=== PATIENT | female | born 1955 | race Caucasian/White ===

== ENCOUNTER 2016-11-28 06:51 | Day surgery (SDC) | payer MEDICARE, MEDICAID ==
[~2016-11-28] VITALS: Ht 165.1 cm; Wt 73.2 kg
[2016-11-28] VITALS (7 sets, daily range): BP systolic 86–135; BP diastolic 54–81; PULSE 52–80; RESP 12–16; TEMP 97.1–98.6; O2SAT 90–97; Ht 165.1 cm; Wt 73.2 kg
[~2016-11-28 06:51] MED LIST: AMLO10TA2 PO; DIAZ5TAB PO; HYDR25TA PO; LISI-621 PO; METH10TA2 PO; METO25TA6 PO; SOLI5TAB6 PO
--- OUTSIDE RECORDS SUMMARY | 2016-11-28 06:56 | XMS REPORT ---
Author Author [facility], [facility] (Formerly [facility]) - Organization Unknown Address Unknown Phone Unavailable Allergies, Adverse Reactions, Alerts * Iodine causes Adverse Reaction. * No Latex Allergy. * No IV Contrast Allergy. * No Known Food Allergies. Problems * Chronic Low Back Pain* Status:Active. * Pneumonia* Status:Active. Procedures No relevant procedures performed. Medication Medication reconciliation has not been performed. Results LAB--CHEMISTRY from 05/01/2013 3:12 PMAnion Gap 11 (3-20 ) Albumin 3.8 g/dL (3.5-4.8 g/dL) Alkaline Phosphatase 72 U/L (26-104 U/L) ALT (SGPT) 18 U/L (14-54 U/L) AST (SGOT) 22 U/L (15-41 U/L) Bilirubin Total 0.5 mg/dL (0.2-1.2 mg/dL) BUN 6 mg/dL (4-20 mg/dL) Calcium 8.9 mg/dL (8.6-10.0 mg/dL) Chloride 105 mEq/L (99-109 mEq/L) CO2 23 mEq/L (22-32 mEq/L) Creatinine 0.70 mg/dL (0.44-1.03 mg/dL) eGFR >60 (>60- ) Globulin 3.6 g/dL (1.9-4.3 g/dL) Glucose 150 mg/dL H (70-100 mg/dL) Potassium 2.5 mEq/L L (3.6-5.1 mEq/L) Sodium 139 mEq/L (136-144 mEq/L) Protein 7.4 g/dL (6.1-7.9 g/dL) Uric Acid 4.7 mg/dL (2.6-8.0 mg/dL) C-Reactive Protein (CRP) 7.8 mg/dL H (0.0-0.9 mg/dL) LAB--HEMATOLOGY from 05/01/2013 3:12 PMAbsolute Basophils 0.02 THOUS (0.00-0.20 THOUS) Absolute Eosinophils 0.16 THOUS (0.00-0.50 THOUS) Absolute Lymphocytes 2.17 THOUS (0.80-3.30 THOUS) Absolute Monocytes 0.90 THOUS (0.30-1.00 THOUS) Absolute Neutrophils 6.58 THOUS (1.90-7.00 THOUS) HCT 43.8 % (37.0-47.0 %) HGB 14.5 g/dl (12.0-16.0 g/dl) MCH 31.8 pg (27.0-32.0 pg) MCHC 33.1 g/dL (32.0-36.0 g/dL) MCV 96.1 fL (82.0-99.0 fL) MPV 10.0 fL (9.4-12.4 fL) Platelet Count 218 K/uL (150-400 K/uL) RBC 4.56 M/uL (4.00-5.20 M/uL) RDW 12.8 % (11.5-14.5 %) WBC 9.9 K/uL (4.8-10.8 K/uL) Basophils 0 % (0-2 %) Eosinophils 2 % (0-4 %) Immature Granulocytes 0.3 % (0.0-1.0 %) Lymphocytes 22 % (20-46 %) Monocytes 9 % (4-11 %) Neutrophils 67 % (51-75 %) Sedimentation Rate 36 mm/hr H (0-23 mm/hr)
--- OUTSIDE RECORDS SUMMARY | 2016-11-28 06:56 | XMS REPORT | Referral Summary ---
Author Author [facility] Organization [facility] Address Unknown Phone Unavailable Care Team Providers Care Pier Worker Name Role Phone Alicia Mendoza Primary Care Physician [phone] Encounter VC Date(s): 04/26/15 - 04/26/15 [facility] [address] [address]- Discharge Diagnosis: Urinary tract infection Discharge Diagnosis: COPD (chronic obstructive pulmonary disease) Discharge Diagnosis: Microscopic hematuria Discharge Diagnosis: OAB (overactive bladder) Discharge Diagnosis: Incontinence of urine in female Discharge Diagnosis: Bipolar Discharge Diagnosis: Chronic back pain Discharge Diagnosis: Morbid obesity Discharge Diagnosis: HTN (hypertension) Discharge Diagnosis: Neuropathy, peripheral Discharge Disposition: -Home or Self Care Attending Physician: Kary Moya MD Admitting Physician: Kary Moya MD Referring Physician: Joshua Mendoza DO Vital Signs Most recent to 1 oldest [Reference Range]: Respiratory Rate 18 br/min [14-20 br/min] (04/26/15 11:12 AM) Blood Pressure 130/90 mmHg [90-140/60-90 mmHg] (04/26/15 11:12 AM) Problem List Condition Effective Dates Status Health Status Informant Acute Active pain(Confirmed) Anxiety(Confirmed) Active patient Asthma(Confirmed) Active patient At risk for activity Active intolerance(Confirme d)1 At risk of pressure Active sore(Confirmed) Bipolar(Confirmed) Active patient Chronic back Active patient pain(Confirmed) COPD (chronic Active patient obstructive pulmonary disease)(Confirmed) HTN Active patient (hypertension)(Confi rmed) Impaired gas Active exchange(Confirmed)2 Morbid Active patient obesity(Confirmed) 1Problem added automatically by system based on initiation of At Risk for Activity Intolerance Plan of Care 2Problem added automatically by system based on initiation of Impaired Gas Exchange Plan of Care Allergies, Adverse Reactions, Alerts Substance Reaction Severity Status iodine Adverse Reaction Active Medications albuterol 5 mg/mL (0.5%) inhalation solution 0.5 mL, NEB, q2hr (scheduled), Other (See Comment), 0 Refill(s) Start Date: 04/12/14 Status: Ordered amLODIPine 10 mg oral tablet 10 mg 1 tabs, Oral, Daily, # 30 tabs, 5 Refill(s), Pharmacy: [facility] [id number], 1 tabs Oral Daily,x30 days Start Date: 04/12/15 Stop Date: 10/09/15 Status: Ordered Bactrim DS 800 mg-160 mg oral tablet 1 tabs, Oral, Daily, # 30 tabs, 0 Refill(s) Start Date: 03/01/15 Stop Date: 03/06/16 Status: Ordered Brovana 15 mcg/2 mL inhalation solution 2 mL, NEB, BID, 0 Refill(s) Start Date: 04/12/14 Status: Ordered budesonide 0.5 mg/2 mL inhalation suspension 2 mL, NEB, BID, 0 Refill(s) Start Date: 04/12/14 Status: Ordered busPIRone 10 mg oral tablet 1 tabs, Oral, Daily, 0 Refill(s) Start Date: 04/12/14 Status: Ordered Habitrol 14 mg/24 hr transdermal film, extended release 1 patches, TransDermal, Daily, 0 Refill(s) Start Date: 04/12/14 Status: Ordered ipratropium 500 mcg/2.5 mL inhalation solution 2.5 mL, NEB, q2hr (scheduled), Other (See Comment), 0 Refill(s) Start Date: 04/12/14 Status: Ordered methadone 40 mg, Oral, BID, 0 Refill(s) Start Date: 04/09/14 Status: Ordered Miscellaneous DME DME Item Reclining Chair Dx: COPD, See Instructions, # 1 Each, 0 Refill(s), Supply Start Date: 06/08/14 Status: Ordered Miscellaneous DME DME Item Walker with seat and basket Dx: COPD, See Instructions, # 1 Each, 0 Refill(s), Supply Start Date: 06/08/14 Status: Ordered nicotine 14 mg/24 hr transdermal film, extended release 1 patches, Topical, Daily, # 30 patches, 1 Refill(s), Pharmacy: [facility] [id number] Start Date: 06/08/14 Status: Ordered Norvasc 10 mg oral tablet 1 tabs, Oral, Daily, 0 Refill(s) Start Date: 04/12/14 Status: Ordered Pepcid 20 mg oral tablet 2 tabs, Oral, BID, # 120 tabs, 1 Refill(s), Pharmacy: [facility] [id number] , 2 tabs Oral BID Start Date: 06/08/14 Status: Ordered Percocet 10/325 1 tabs, Oral, q6hr, as needed for pain, 0 Refill(s) Start Date: 04/09/14 Status: Ordered potassium chloride 20 mEq oral tablet, extended release 2 tabs, Oral, TIDWM, 0 Refill(s) Start Date: 04/12/14 Status: Ordered ProAir HFA 90 mcg/inh inhalation aerosol 2 puffs, Inhalation, q4hr, Shortness of Breath/Wheezing, # 1 Each, 6 Refill(s), Pharmacy: [facility] [place] [place] Start Date: 08/01/15 Status: Ordered Spiriva 18 mcg inhalation capsule 18 mcg 1 Each, Inhalation, Daily, use two inhalations of one capsule for each dose-must keep appt, # 30 Each, 6 Refill(s), Pharmacy: [facility] [place], [place], 1 Each Inhalation Daily,Instr:use two inhalations of one capsule for each dose-mu... Start Date: 08/01/15 Status: Ordered Tums 500 mg oral tablet, chewable 2 tabs, Oral, TIDAC, 0 Refill(s) Start Date: 04/12/14 Status: Ordered Valium 5 mg, Oral, TID, 0 Refill(s) Start Date: 04/09/14 Status: Ordered Results Microbiology Reports TEST: Urine Culture STATUS: Auth (Verified) BODY SITE: SOURCE: Urine, Clean Catch COLLECTED DATE/TIME: 04/26/15 12:00 PM Urine Culture Other mixed alfred present Enterobacter cloacae 50-100,000 cfu/ml ORGANISM:Enterobacter cloacae Immunizations Vaccine Date Refusal Reason influenza virus vaccine, inactivated 06/21/15 influenza virus vaccine, live 11/26/11 influenza virus vaccine, live 10/31/10 tetanus-diphth toxoids (Td) adult/adol 06/20/01 Procedures Procedure Date Related Diagnosis Body Site Measurement of post-voiding residual urine 04/26/15 and/or bladder capacity by ultrasound, non-imaging Adenoidectomy Appendectomy Back Hysterectomy Tonsillectomy Social History Social History Type Response Smoking Status Former smoker Assessment and Plan No data available for this section
--- OUTSIDE RECORDS SUMMARY | 2016-11-28 06:56 | XMS REPORT | Referral Summary ---
Author Author [facility] Organization [facility] Address Unknown Phone Unavailable Care Team Providers Care Superintendent Refuse Disposal Name Role Phone Alicia Mendoza Primary Care Physician [phone] Encounter VC Date(s): 08/01/15 - 08/01/15 [facility] [address] [id number] Discharge Diagnosis: COPD (chronic obstructive pulmonary disease) Discharge Diagnosis: HTN (hypertension) Discharge Disposition: 01-Home or Self Care Attending Physician: Zeenat Delgado MD Admitting Physician: Joshua Mendoza DO Vital Signs Most recent to 1 oldest [Reference Range]: Temperature Oral 36.9 degC [35.8-37.3 degC] (08/01/15 2:56 PM) Peripheral Pulse 97 bpm Rate [60-100 bpm] (08/01/15 2:56 PM) Respiratory Rate 22 br/min [14-20 br/min] *HI* (08/01/15 2:56 PM) Blood Pressure 130/68 mmHg [90-140/60-90 mmHg] (08/01/15 2:56 PM) SpO2 97 % (08/01/15 2:56 PM) Problem List Condition Effective Dates Status Health [...] Daily, # 30 tabs, 5 Refill(s), Pharmacy: [facility] [id number], 1 tabs Oral Daily,x30 days Start Date: [...] Daily, # 30 patches, 1 Refill(s), Pharmacy: [facility] [id number] Start Date: 06/08/14 Status: Ordered Norvasc 10 mg oral tablet 1 tabs, Oral, Daily, 0 Refill(s) Start Date: 04/12/14 Status: Ordered Pepcid 20 mg oral tablet 2 tabs, Oral, BID, # 120 tabs, 1 Refill(s), Pharmacy: [facility] [id number] , 2 tabs Oral BID Start Date: [...] Each, 6 Refill(s), Pharmacy: [facility] [place] [place] Start Date: 08/01/15 Status: Ordered Spiriva 18 mcg inhalation capsule 18 mcg 1 Each, Inhalation, Daily, use two inhalations of one capsule for each dose-must keep appt, # 30 Each, 6 Refill(s), Pharmacy: [facility] [place], [place], 1 Each Inhalation Daily,Instr:use two inhalations of one capsule for each dose-mu... Start Date: 08/01/15 Status: Ordered Tums 500 mg oral tablet, chewable 2 tabs, Oral, TIDAC, 0 Refill(s) Start Date: 04/12/14 Status: Ordered Valium 5 mg, Oral, TID, 0 Refill(s) Start Date: 04/09/14 Status: Ordered Results No data available for this section Immunizations Vaccine Date Refusal Reason influenza virus vaccine, inactivated 06/21/15 influenza virus vaccine, live 11/26/11 influenza virus vaccine, live 10/31/10 tetanus-diphth toxoids (Td) adult/adol 06/20/01 Procedures Procedure Date Related Diagnosis Body Site Adenoidectomy Appendectomy Back Hysterectomy Tonsillectomy Social History Social History Type Response Smoking Status Former smoker Assessment and Plan Extracted from: Title: Ambulatory Patient Education Author: Joshua Mendoza DO Date: 08/01/15 Family Medicine Chronic Obstructive Pulmonary Disease Chronic obstructive pulmonary disease (COPD) is a common lung condition in which airflow from the lungs is limited. COPD is a general term that can be used to describe many different lung problems that limit airflow, including both chronic bronchitis and emphysema. If you have COPD, your lung function will probably never return to normal, but there are measures you can take to improve lung function and make yourself feel better. CAUSES Smoking (common). Exposure to secondhand smoke. Genetic problems. Chronic inflammatory lung diseases or recurrent infections. SYMPTOMS Shortness of breath, especially with physical activity. Deep, persistent (chronic) cough with a large amount of thick mucus. Wheezing. Rapid breaths (tachypnea). Neville or bluish discoloration (cyanosis) of the skin, especially in fingers , toes, or lips. Fatigue. Weight loss. Frequent infections or episodes when breathing symptoms become much worse ( exacerbations). Chest tightness. DIAGNOSIS Your health care provider will take a medical history and perform a physical examination to make the initial diagnosis. Additional tests for COPD may include: Lung (pulmonary) function tests. Chest X-ray. CT scan. Blood tests. TREATMENT Treatment available to help you feel better when you have COPD includes: Inhaler and nebulizer medicines. These help manage the symptoms of COPD and make your breathing more comfortable. Supplemental oxygen. Supplemental oxygen is only helpful if you have a low oxygen level in your blood. Exercise and physical activity. These are beneficial for nearly all people with COPD. Some people may also benefit from a pulmonary rehabilitation program. HOME CARE INSTRUCTIONS Take all medicines (inhaled or pills) as directed by your health care provider. Avoid jugb-rga-smkdwek medicines or cough syrups that dry up your airway ( such as antihistamines) and slow down the elimination of secretions unless instructed otherwise by your health care provider. If you are a smoker, the most important thing that you can do is stop smoking. Continuing to smoke will cause further lung damage and breathing trouble. Ask your health care provider for help with quitting smoking. He or she can direct you to community resources or hospitals that provide support. Avoid exposure to irritants such as smoke, chemicals, and fumes that aggravate your breathing. Use oxygen therapy and pulmonary rehabilitation if directed by your health care provider. If you require home oxygen therapy, ask your health care provider whether you should purchase a pulse oximeter to measure your oxygen level at home. Avoid contact with individuals who have a contagious illness. Avoid extreme temperature and humidity changes. Eat healthy foods. Eating smaller, more frequent meals and resting before meals may help you maintain your strength. Stay active, but balance activity with periods of rest. Exercise and physical activity will help you maintain your ability to do things you want to do. Preventing infection and hospitalization is very important when you have COPD. Make sure to receive all the vaccines your health care provider recommends , especially the pneumococcal and influenza vaccines. Ask your health care provider whether you need a pneumonia vaccine. Learn and use relaxation techniques to manage stress. Learn and use controlled breathing techniques as directed by your health care provider. Controlled breathing techniques include: Pursed lip breathing. Start by breathing in (inhaling) through your nose for 1 second. Then, purse your lips as if you were going to whistle and breathe out (exhale) through the pursed lips for 2 seconds. Diaphragmatic breathing. Start by putting one hand on your abdomen just above your waist. Inhale slowly through your nose. The hand on your abdomen should move out. Then purse your lips and exhale slowly. You should be able to feel the hand on your abdomen moving in as you exhale. Learn and use controlled coughing to clear mucus from your lungs. Controlled coughing is a series of short, progressive coughs. The steps of controlled coughing are: 1. Lean your head slightly forward. 2. Breathe in deeply using diaphragmatic breathing. 3. Try to hold your breath for 3 seconds. 4. Keep your mouth slightly open while coughing twice. 5. Spit any mucus out into a tissue. 6. Rest and repeat the steps once or twice as needed. SEEK MEDICAL CARE IF: You are coughing up more mucus than usual. There is a change in the color or thickness of your mucus. Your breathing is more labored than usual. Your breathing is faster than usual. SEEK IMMEDIATE MEDICAL CARE IF: You have shortness of breath while you are resting. You have shortness of breath that prevents you from: Being able to talk. Performing your usual physical activities. You have chest pain lasting longer than 5 minutes. Your skin color is more cyanotic than usual. You measure low oxygen saturations for longer than 5 minutes with a pulse oximeter. MAKE SURE YOU: Understand these instructions. Will watch your condition. Will get help right away if you are not doing well or get worse. Document Released: 06/03/2006 Document Revised: 01/08/2015 Document Reviewed: ExitCare Patient Information 2015 [facility], [facility]. This information is not intended to replace advice given to you by your health care provider. Make sure you discuss any questions you have with your health care provider. No follow up information was provided.
--- OUTSIDE RECORDS SUMMARY | 2016-11-28 06:56 | XMS REPORT | Referral Summary ---
Author Author [facility] Organization [facility] Address Unknown Phone Unavailable Care Team Providers Care Bar Host Name Role Phone Alicia Mendoza Primary Care Physician [phone] Encounter Date(s): 03/01/15 - 03/01/15 [facility] [address] [place] [address]- Discharge Diagnosis: Mid back pain on right side Discharge Diagnosis: Acute UTI Discharge Diagnosis: Acute urinary retention Final: OTHER SPECIFIED RETENTION OF URINE Final: URINARY TRACT INFECTION, SITE NOT SPECIFIED Final: ATHEROSCLEROSIS OF AORTA Final: TOBACCO USE DISORDER Discharge Disposition: -Home or Self Care Attending Physician: Diomedes Santoro MD Admitting Physician: Diomedes Erickson DO Referring Physician: Self Referred, X Vital Signs Most recent to 1 oldest [Reference Range]: Temperature Oral 36.5 degC [35.8-37.3 degC] (03/01/15 5:59 PM) Peripheral Pulse 84 bpm Rate [60-100 bpm] (03/01/15 5:59 PM) Heart Rate Monitored 60 bpm [60-100 bpm] (03/01/15 9:30 PM) Respiratory Rate 16 br/min [14-20 br/min] (03/01/15 7:46 PM) Blood Pressure 182/98 mmHg [90-140/60-90 mmHg] *HI* (03/01/15 9:30 PM) Mean Arterial 134 mmHg Pressure, Cuff (03/01/15 9:30 PM) SpO2 95 % (03/01/15 7:46 PM) Problem List Condition Effective Dates Status [...] Daily, # 30 tabs, 5 Refill(s), Pharmacy: [facility] [id number], 1 tabs Oral Daily,x30 days Start Date: [...] Daily, # 30 patches, 1 Refill(s), Pharmacy: [facility] [id number] Start Date: 06/08/14 Status: Ordered Norvasc 10 mg oral tablet 1 tabs, Oral, Daily, 0 Refill(s) Start Date: 04/12/14 Status: Ordered Pepcid 20 mg oral tablet 2 tabs, Oral, BID, # 120 tabs, 1 Refill(s), Pharmacy: [facility] [id number] , 2 tabs Oral BID Start Date: [...] Each, 6 Refill(s), Pharmacy: [facility] [place] Start Date: 08/01/15 Status: Ordered Spiriva 18 mcg inhalation capsule 18 mcg 1 Each, Inhalation, Daily, use two inhalations of one capsule for each dose-must keep appt, # 30 Each, 6 Refill(s), Pharmacy: [facility] [place], 1 Each Inhalation Daily,Instr:use two inhalations of one capsule for each dose-mu... Start Date: 08/01/15 Status: Ordered Tums 500 mg oral tablet, chewable 2 tabs, Oral, TIDAC, 0 Refill(s) Start Date: 04/12/14 Status: Ordered Valium 5 mg, Oral, TID, 0 Refill(s) Start Date: 04/09/14 Status: Ordered Results Hematology Most recent to 1 oldest [Reference Range]: WBC [4.8-10.8 9.2 10*3/uL 10*3/uL] (03/01/15 7:41 PM) RBC [4.00-5.20 4.52 10*6/uL 10*6/uL] (03/01/15 7:41 PM) Hgb [12.0-16.0 14.7 gm/dL gm/dL] (03/01/15 7:41 PM) Hct [37.0-47.0 %] 42.4 % (03/01/15 7:41 PM) MCV [82.0-99.0 fL] 93.8 fL (03/01/15 7:41 PM) MCH [27.0-32.0 pg] 32.5 pg *HI* (03/01/15:41 PM) MCHC [32.0-36.0 34.7 gm/dL gm/dL] (03/01/15 7:41 PM) RDW [11.5-14.5 %] 12.2 % (03/01/15 7:41 PM) Platelet [150-400 255 10*3/uL 10*3/uL] (03/01/15 7:41 PM) MPV [9.4-12.4 fL] 9.7 fL (03/01/15 7:41 PM) Immature 0.3 % Granulocytes (03/01/15 7:41 PM) [0.0-1.0 %] Neutrophils [51-75 50 % %] *LOW* (03/01/15 7:41 PM) Lymphocytes [20-46 35 % %] (03/01/15 7:41 PM) Monocytes [4-11 %] 9 % (03/01/15 7:41 PM) Eosinophils [0-4 %] 6 % *HI* (03/01/15 7:41 PM) Basophils [0-2 %] 1 % (03/01/15 7:41 PM) Neutro Absolute 4.55 10*3 [1.90-7.00 10*3] (03/01/15 7:41 PM) Lymph Absolute 3.22 10*3 [0.80-3.30 10*3] (03/01/15 7:41 PM) Shannon Absolute 0.84 10*3 [0.30-1.00 10*3] (03/01/15 7:41 PM) Eos Absolute 0.51 10*3 [0.00-0.50 10*3] *HI* (03/01/15 7:41 PM) Baso Absolute 0.05 10*3 [0.00-0.20 10*3] (03/01/15 7:41 PM) Chemistry Most recent to 1 oldest [Reference Range]: Sodium Lvl [136-144 138 mEq/L mEq/L] (03/01/15 7:41 PM) Potassium Lvl 3.6 mEq/L 1 [3.6-5.1 mEq/L] (03/01/15 7:41 PM) Chloride [99-109 103 mEq/L mEq/L] (03/01/15 7:41 PM) CO2 [22-32 mEq/L] 26 mEq/L (03/01/15 7:41 PM) AGAP [3-20] 9 (03/01/15 7:41 PM) BUN [4-20 mg/dL] 9 mg/dL (03/01/15 7:41 PM) Glucose Lvl [70-100 91 mg/dL mg/dL] (03/01/15 7:41 PM) Creatinine Lvl 0.76 mg/dL [0.44-1.03 mg/dL] (03/01/15 7:41 PM) eGFR [>60] >60 2 (03/01/15 7:41 PM) Calcium Lvl 9.3 mg/dL [8.6-10.0 mg/dL] (03/01/15 7:41 PM) Albumin Lvl [3.5-4.8 4.5 gm/dL gm/dL] (03/01/15 7:41 PM) Total Protein 7.8 gm/dL [6.1-7.9 gm/dL] (03/01/15 7:41 PM) Globulin [1.9-4.3 3.3 gm/dL gm/dL] (03/01/15 7:41 PM) ALT [14-54 U/L] 25 U/L (03/01/15 7:41 PM) AST [15-41 U/L] 31 U/L (03/01/15 7:41 PM) Alk Phos [26-104 82 U/L U/L] (03/01/15 7:41 PM) Bili Total [0.2-1.2 0.8 mg/dL 3 mg/dL] (03/01/15 7:41 PM) Lipase Lvl [8-48 15 U/L U/L] (03/01/15 7:41 PM) 1Result Comment: Hemolyzed specimen. The following tests may be affected: ALT, AST, Ammonia, Iron, Potassium, LDH, Amylase, CPK, and Total Bilirubin. 2Result Comment: Multiply eGFR results by 1.21 for race. 3Result Comment: Naproxen, specifically the metabolite O-desmethylnaproxen, may cause spurious elevation in Total Bilirubin levels. Urinalysis Most recent to 1 oldest [Reference Range]: UA Color Lt Yellow (03/01/15 7:42 PM) UA Appear Clear (03/01/15 7:42 PM) UA pH [5.0-8.0] 7.0 (03/01/15 7:42 PM) UA Leuk Est Negative [Negative] (03/01/15 7:42 PM) UA Nitrite Negative [Negative] (03/01/15 7:42 PM) UA Protein Negative [Negative] (03/01/15 7:42 PM) UA Glucose Negative [Negative] (03/01/15 7:42 PM) UA Ketones Negative [Negative] (03/01/15 7:42 PM) UA Urobilinogen Negative [<1.0] (03/01/15 7:42 PM) UA Bili [Negative] Negative (03/01/15 7:42 PM) UA Blood [Negative] Pos 1+ *ABN* (03/01/15 7:42 PM) UA Spec Grav 1.005 [1.003-1.030] (03/01/15 7:42 PM) Type Clean Catch (03/01/15 7:42 PM) UA WBC [0-4] 0-2 (03/01/15 7:42 PM) UA RBC [0-2] 2-5 (03/01/15 7:42 PM) Epithelial Cells 0-2 (03/01/15 7:42 PM) Immunizations Vaccine Date Refusal Reason influenza virus vaccine, inactivated 06/21/15 influenza virus vaccine, live 11/26/11 influenza virus vaccine, live 10/31/10 tetanus-diphth toxoids (Td) adult/adol 06/20/01 Procedures Procedure Date Related Diagnosis Body Site Insertion of non-indwelling bladder catheter 03/01/15 (eg, straight catheterization for residual urine) Adenoidectomy Appendectomy Back Hysterectomy Tonsillectomy Social History Social History Type Response Smoking Status Former smoker Assessment and Plan No data available for this section
--- OUTSIDE RECORDS SUMMARY | 2016-11-28 06:56 | XMS REPORT | Referral Summary ---
Author Author [facility] Organization [facility] Address Unknown Phone Unavailable Care Team Providers Care Lab Tech Name Role Phone Alicia Mendoza Primary Care Physician [phone] Encounter VC Date(s): 04/12/15 - 04/12/15 [facility] [address] [id number] Discharge Diagnosis: Urinary retention Discharge Diagnosis: Hypertension Discharge Disposition: -Home or Self Care Attending Physician: Dayanara Mckeon MD Admitting Physician: Joshua Mendoza DO Vital Signs Most recent to 1 oldest [Reference Range]: Temperature Oral 36.7 degC [35.8-37.3 degC] (04/12/15 8:12 AM) Peripheral Pulse 78 bpm Rate [60-100 bpm] (04/12/15 8:12 AM) Respiratory Rate 20 br/min [14-20 br/min] (04/12/15 8:12 AM) Blood Pressure 198/106 mmHg [90-140/60-90 mmHg] *HI* (04/12/15 8:12 AM) Problem List Condition Effective Dates Status [...] Daily, # 30 tabs, 5 Refill(s), Pharmacy: [id number], 1 tabs Oral Daily,x30 days Start Date: [...] Daily, # 30 patches, 1 Refill(s), Pharmacy: [facility] [id number] Start Date: 06/08/14 Status: Ordered Norvasc 10 mg oral tablet 1 tabs, Oral, Daily, 0 Refill(s) Start Date: 04/12/14 Status: Ordered Pepcid 20 mg oral tablet 2 tabs, Oral, BID, # 120 tabs, 1 Refill(s), Pharmacy: [id number] , 2 tabs Oral BID Start Date: [...] Each, 6 Refill(s), Pharmacy: [facility] [place], [place], 1 Each Inhalation Daily,Instr:use two inhalations of one capsule for each dose-mu... Start Date: 08/01/15 Status: Ordered Tums 500 mg oral tablet, chewable 2 tabs, Oral, TIDAC, 0 Refill(s) Start Date: 04/12/14 Status: Ordered Valium 5 mg, Oral, TID, 0 Refill(s) Start Date: 04/09/14 Status: Ordered Results Urinalysis Most recent to 1 oldest [Reference Range]: UA Color Yellow (04/12/15 12:00 AM) UA Appear Clear (04/12/15 12:00 AM) UA pH [5.0-8.0] 6.0 (04/12/15 12:00 AM) UA Leuk Est Negative [Negative] (04/12/15 12:00 AM) UA Nitrite Negative [Negative] (04/12/15 12:00 AM) UA Protein Negative [Negative] (04/12/15 12:00 AM) UA Glucose Negative [Negative] (04/12/15 12:00 AM) UA Ketones Negative [Negative] (04/12/15 12:00 AM) UA Urobilinogen 0.2 mg/dL (04/12/15 12:00 AM) UA Bili [Negative] Negative (04/12/15 12:00 AM) UA Blood Pos 1+ *ABN* (04/12/15 12:00 AM) UA Spec Grav <=1.005 [1.003-1.030] (04/12/15 12:00 AM) Type Cl Catch (04/12/15 12:00 AM) UA WBC [0-4] 0-2 (04/12/15 12:00 AM) UA RBC [0-4] 0-4 (04/12/15 12:00 AM) Epithelial Cells 0-2 (04/12/15 12:00 AM) Immunizations Vaccine Date Refusal Reason influenza virus vaccine, inactivated 06/21/15 influenza virus vaccine, live 11/26/11 influenza virus vaccine, live 10/31/10 tetanus-diphth toxoids (Td) adult/adol 06/20/01 Procedures Procedure Date Related Diagnosis Body Site Adenoidectomy Appendectomy Back Hysterectomy Tonsillectomy Social History Social History Type Response Smoking Status Former smoker Assessment and Plan Extracted from: Title: Office Visit Note Author: Joshua Mendoza DO Date: 04/12/15 Assessment/Plan 59 year old female with: 1. Urinary retention - PV Cath in ER last month was ~200cc. UA today in clinic not suggestive of UTI , neg LE, neg Nitrite - Will repeat MRI lumbar spine due to new numbness and tingling in groin associated with bladder dysfunction - No cystocele or vaginal atrophy to account for her symptoms - Will refer to urology for urodynamic testing and possible cystoscopy, but will need MRI first to r/o autonomiccompression neuropathy given her history and symptoms 2. Hypertension - Not well controlled, pt states that she ran out of her amlodipine several days ago and has neglected to get refill. Will refill today, take and check BP at home, call if does not improve or develops headache or chest pain. - Denies headache or chest pain today. I discussed this patient with my preceptor, Dr. Mckeon,who agreed with the assessment and plan. Addendum I discussed the patient with the Resident/INTELLIGENCE OFFICER BASIC/PA/RN/PharmD, reviewed the chart and was by Mike, physically present during the critical portion of the provided service, and concur with Dayanara Cardona MD the assessment and plan as above. ~Dayanara Mckeon MD on April 12, 2015 11:09:13 CDT
[2016-11-28] MEDS ORDERED: LIDOCAINE 1% (10mg/ml) 2ml SDV INJ ONE (07:00)
[2016-11-28] MEDS ORDERED: LR 1,000 ML IV SCH (07:00)
[2016-11-28] MEDS ORDERED: FLEET PHOSPHO-SODA 133 ML ENEMA RECTALLY PRN (09:15)
--- NOTE | 2016-11-28 10:00 | ANESPREOP ---
Anesthesia Record Date and Time DATE: 11/28/16 TIME: 09:57 Pre-Op Diagnosis hematochezia Proposed Surgical Procedure COLONOSCOPY Allergies: Coded Allergies: NKDA (Verified Allergy, Unknown, 11/28/16) Uncoded Allergies: IVP DYE (Allergy, Severe, 11/27/16) CARDIAC ARREST Ht/Wt/BMI Height: 5 ' 5.00 " Weight: 73.200 kg BMI: 26.9 kg/m2 Vital Signs Date Time Temp Pulse Resp B/P Pulse Ox O2 Delivery O2 Flow Rate FiO2 11/28/16 07:09 98.0 76 13 135/75 90 Room Air Medications Inpatient Medications Current Medications Medications (Trade) Dose Ordered Sig/Carissa Start Time Stop Time Status Last Admin Dose Admin Lactated Ringer's (Lactated Ringers) 1,000 ml @ 50 mls/hr Q20H 11/28/16 07:00 Sodium Biphosphate/ Sodium Phosphate (Fleet Enema Saline) 1 enema PRN PRN 11/28/16 09:15 11/28/16 09:05 1 ENEMA Amlodipine Besylate (Amlodipine Besylate) 10 Mg Tablet, 10 MG PO DAILY, ( Reported) Last Taken: on 11/27/16599 Diazepam (Valium) 5 Mg Tablet, 1 TAB PO TID, ( Reported) Last Taken: on 11/27/16599 Hydrochlorothiazide (Hydrochlorothiazide) 25 Mg Tablet, 1 TAB PO WB, (Reported) Last Taken: on 11/27/16599 Lisinopril (Lisinopril) 20 Mg Tablet, 20 MG PO DAILY, (Reported) Last Taken: on 11/28/16599 Methadone HCl (Methadone HCl) 10 Mg Tablet, 1 TAB PO BID, (Reported) Last Taken: on 11/27/16599 Metoprolol Tartrate (Metoprolol Tartrate) 25 Mg Tablet, 25 MG PO WB, (Reported) Take 1 tab, by mouth, one time a day (with breakfast). Last Taken: on 11/28/16599 Solifenacin Succinate (Vesicare) 5 Mg Tablet, 5 MG PO DAILY, (Reported) Last Taken: on 11/27/16599 Currently on Beta Maxwell: Yes Beta Maxwell Last Taken: METOPROLOL 0600 11/28/16 Medical/Surgical History Anesthesia PMH: Reports: *Hypertension (PER H&P), COPD (PER H&P), Denies: * Diabetes, Anesthesia Reactions (NO AIRWAY ISSUES), Cancer, Glaucoma, Malignant Hyperthermia, Sleep Apnea, Thyroid Disease Smoking Status: Former smoker Has pt. smoked today?: No Use Chewing Tobacco?: No Second Hand Exposure: No Substance Use Type: does not use Substance last used: unknown Alcohol Intake: none Last Drink: unknown Past Surgical History Orthopedic Surgeries: Yes - BACK SURGERY PER H&P Abdominal Surgeries: Yes - APPY PER H&P Genitourinary Surgeries: Cardiac Surgeries: Endocrine Surgeries: Reproductive Surgeries: Yes - D&C,TOTAL HYST PER H&P Neurological Surgeries: Ear Surgeries: Nose Surgeries: Throat Surgeries: Yes - TONSILLECTOMY PER H&P Other Surgeries: Yes - FULL TEETH EXTRACTION PER H&P Anesthesia Adverse Reactions: FOUND nausea and vomiting Family Hx of Anesthesia Advers: none Hx of Motion Sickness: Yes Pertinent Findings EKG Rhythm: Sinus Rhythm Physical Exam Respiratory: Bilat breath sounds equal, Lungs clear Cardiovascular: FOUND Regular rate, rhythm, FOUND No murmur Airway Assessment Mallampati Score: I Neck Extension: Good Teeth: Upper Dentures, Lower Dentures Overall Assessment: May Be Diff Mask Vent. ASA: 2 Plan Anesthesia Plan: TIVA Discussion Discussed risks/options/alternatives of anesthesia and questions answered. Patient consents. Nursing pain assessment noted. Attestation Statement Prior to the delivery of any anesthetic medication, I examined the patient, developed the plan, obtained the patient's consent and discussed the risk and benefits of the procedure with the patient/guardian. HERBER LABOY CRNA Nov 28, 2016 10:00
[2016-11-28] MEDS ORDERED: PROPOFOL 500mg 50 ML IV ONE (10:08)
[2016-11-28] MEDS ORDERED: LIDOCAINE 1% (10mg/ml) 2ml SDV ONE (10:08)
--- NOTE | 2016-11-28 10:37 | GSPOSTPROC ---
Immediate Operative Note DATE: 11/28/16 TIME: 10:36 Postop Diagnosis: colon polyps Surgical Procedure: C-scope w/Polypectomy Surgeon: Zulema ASA: 2 RONEN ALVAREZ MD Nov 28, 2016 10:37
--- NOTE | 2016-11-28 11:34 | ANESPO ---
Post-Op Note Date 11/28/16 Time: 11:33 Status Pt Participated in Evaluation: Pt participated in person Vital Signs Date Time Temp Pulse Resp B/P Pulse Ox O2 Delivery O2 Flow Rate FiO2 11/28/16 11:17 97.1 52 16 115/70 97 Room Air Respiratory Function: Airway patent, Regular respirations Cardiovascular Function: Regular pulse Mental Status: Alert/oriented Pain Level Intensity: 0 (0) Hydration: Taking po fluids Complications during Recovery None apparent Post-Anesthesia Notes [email or web address]. [email or web address] Follow-Up Instructions Instructions Per Surgeon Additional Information none HERBER LABOY CRNA Nov 28, 2016 11:33
--- NOTE | 2016-11-28 19:13 | OPNOTEF ---
DATE OF OPERATION 11/28/2016 PREOPERATIVE DIAGNOSIS Hematochezia. POSTOPERATIVE DIAGNOSES 1. Internal hemorrhoids. 2. Hematochezia. 3. Two colon polyps. OPERATION Total colonoscopy with polypectomy. SURGEON Dr. Zulema PATEL ASA Class 2 FINDINGS There were no colon or rectal tumors. The patient did have two colon polyps. One polyp was located at 10 cm proximal to the anal verge. The other polyp was located at 8 cm proximal to the anal verge. There were no colonic angiodysplasia lesions. There was no melanosis coli. There was no inflammatory bowel disease. There was no colonic diverticulosis. The patient does have some internal hemorrhoids. No bright red blood or old blood was seen at the colon or rectum at the time of procedure today. It was thought at the conclusion of the procedure that any hematochezia experienced by the patient has been due to bleeding from internal hemorrhoids.. DESCRIPTION OF OPERATION The patient was brought to the endoscopy room. The patient was placed on a cart in the endoscopy room. The patient was placed in left lateral recumbent position on the cart in the endoscopy room. The patient was premedicated with intravenous sedation medication administered by the nurse estate planning attorney. The Olympus colonoscope was used. The colonoscope was introduced into the rectum. The colonoscope was advanced up through the rectum and colon all the way up to the cecum. The appendiceal orifice was visualized. The ileocecal valve was visualized. The colonoscope was withdrawn out through the colon. When the colonoscope had been withdrawn out to a level 10 cm and 8 cm proximal to the anal verge, the two colon polyps were identified. Each of these polyps was removed with the electrocautery snare device and retrieved and submitted as a specimen for study by the pathologist. The colonoscope was then withdrawn the remainder of the way out through the colon and rectum and removed from the patient. Digital rectal examination was performed. Findings throughout the procedure were as described above. The patient did continue to receive intravenous sedation medication administered by the nurse estate planning attorney throughout the operation. The patient did tolerate the operation well. CECILIO
== END 2016-11-28 11:42 | disposition home or self-care (01) ==
LOC: SCU 06:51
PROVIDERS: ATTEND Surgery
DX: K64.8 Other hemorrhoids (principal); D12.6 Benign neoplasm of colon, unspecified; K92.1 Melena; I10 Essential (primary) hypertension; J44.9 Chronic obstructive pulmonary disease, unspecified; G89.29 Other chronic pain; F41.9 Anxiety disorder, unspecified; Z87.891 Personal history of nicotine dependence; Z79.899 Other long term (current) drug therapy; Z91.041 Radiographic dye allergy status
CPT/HCPCS: 45385; A9270; 88305